=== PATIENT | male | born 1955 | race Caucasian/White ===

== ENCOUNTER → 2020-04-20 06:37 | Outpatient (CLI) | payer BC, MEDICARE, SELFPAY ==
--- NOTE | 2020-04-20 07:23 | DI.MRI.S_ITS ---
PROCEDURE: MR LUMBAR SPINE WO CON INDICATIONS: Bilateral sciatica, worsening sx, h/o multiple surgeries TECHNIQUE: Noncontrast sagittal T1 spin echo and T2 fast echo, sagittal STIR, axial T1 and T2 fast spin echo through the lumbar spine. In cases with scoliosis, additional coronal T2 fast spin echo may be performed. COMPARISON: [facility], MR, L-SPINE WITHOUT CONTRAST, 03/22/2010, 14:20. FINDINGS: Image quality: Excellent. Alignment and Curvature: Straightening of the normal lordotic curvature. Trace retrolisthesis of L3 on L4 and L5 on S1. Bone Marrow: No fracture. Scattered small Schmorl's nodes. Spinal Cord: Conus medullaris terminates at the L1 level. Visualized cord demonstrates normal signal and size. Paraspinous Soft Tissues: No paravertebral masses. Multilevel dorsal epidural lipomatosis. T12-L1: Normal appearance. L1-L2: No canal stenosis. Mild bilateral foraminal narrowing which is grossly unchanged. L2-L3: Posterior annular fissure and predominantly left paramedian disc protrusion. Moderate left-sided canal narrowing. Partial effacement of the left lateral recess. The right lateral recess appears grossly patent. Moderate right foraminal stenosis. Severe left foraminal stenosis with slight nerve root compression. L3-L4: Posterior annular fissure and broad-based posterior disc bulge. Dorsal epidural lipomatosis also noted. Associated severe canal narrowing. Effacement of both lateral recesses. Severe left foraminal stenosis with nerve root compression. Moderate right foraminal stenosis. L4-L5: Moderate canal narrowing. Effacement of both lateral recesses. Severe right foraminal stenosis with nerve root compression. Moderate to severe left foraminal stenosis with slight nerve root compression. L5-S1: Left paramedian disc protrusion and a mild left-sided canal narrowing. Partial effacement of the left lateral recess. The right lateral recess appears grossly patent. Moderate right foraminal stenosis. Mild left foraminal narrowing. IMPRESSION: Multilevel spondylosis and diffuse facet arthropathy with moderate canal narrowing at L4-L5, and L2-L3 and severe canal stenosis at L3-L4. Diffuse bilateral foraminal stenoses as detailed above by spinal level. Multilevel spondylolisthesis as above. Dictated by: Facundo Quiles M.D. on 04/20/2020 at 9:45 Approved by: Facundo Quiles M.D. on 04/20/2020 at 9:52
== END ==
PROVIDERS: PCP Student in an Organized Health Care Education/Training Program; Referring Provider Student in an Organized Health Care Education/Training Program; Visit Provider Student in an Organized Health Care Education/Training Program
DX: M54.41 Lumbago with sciatica, right side (principal); M54.40 Lumbago with sciatica, unspecified side; M47.816 Spondylosis without myelopathy or radiculopathy, lumbar region; M48.061 Spinal stenosis, lumbar region without neurogenic claudication; M48.07 Spinal stenosis, lumbosacral region; M43.16 Spondylolisthesis, lumbar region
CPT/HCPCS: 72148

== ENCOUNTER → 2020-06-27 09:56 | Outpatient (CLI) | payer BC, MEDICARE, SELFPAY ==
[2020-06-27 11:17] LABS: COVID19 -Nasal RAPID Negative (Negative)
== END ==
PROVIDERS: PCP Student in an Organized Health Care Education/Training Program; Visit Provider Student in an Organized Health Care Education/Training Program
DX: Z20.822 Contact with and (suspected) exposure to COVID-19 (principal)
CPT/HCPCS: 87635; C9803

== ENCOUNTER → 2020-06-28 07:38 | Outpatient (CLI) | payer BC, MEDICARE, SELFPAY ==
--- NOTE | 2020-06-28 11:55 | PM.TREADMILL ---
Cardiac Stress Test Report Referral & Results Date Patient Seen: 06/28/20 Time Patient Seen: 11:55 Requesting provider: Ritesh Alatorre Indication: angina pectoris Rest ECG: sinus rhythm with nonspecific ST changes Procedure Note: After Lexiscan injection had minimal dyspnea, no chest pain No significant ST changes after Lexiscan injection Rare PVCs Impression: Normal Lexiscan stress test Please note: Actual ECG tracings can be found in the PACS system.
--- NOTE | 2020-06-28 17:20 | DI.NM.S_ITS ---
DATE OF SERVICE: 06/28/2020 PROCEDURE PERFORMED: Pharmacologic vasodilator stress and rest myocardial perfusion imaging with gating to assess ejection fraction and regional wall motion. INDICATIONS: The patient is a 65-year-old male with history of myocardial infarction and percutaneous revascularization, who requires presurgical evaluation prior to back surgery. ORDERING PROVIDER: Dr. Ritesh Alatorre. PHARMACOLOGIC VASODILATOR STRESS: The patient was given 0.4 mg of regadenoson per protocol with a normal hemodynamic response without any chest discomfort. His resting ECG shows a nonspecific interventricular conduction delay with inferolateral ST-segment abnormalities and occasional PVCs. With stress, there were no significant ST-segment shifts. He had occasional ventricular bigeminy, but no concerning arrhythmias. Per protocol, he was injected with 26.5 millicuries of technetium-99m Myoview was imaged 20 minutes later using a gated SPECT acquisition protocol. Earlier in the day while at rest, he was injected with 12.7 millicuries of technetium- 99m Myoview was imaged 30 minutes later, again using a gated SPECT acquisition protocol. FINDINGS: 1. Raw data: There is fair myocardial tracer uptake with some slight motion noted. He was unable to lay prone due to physical limitations. His lung/heart ratio is elevated at 0.54, which can be a sign of pulmonary congestion, although is not visually obvious. His TID ratio was normal at 0.88. 2. Quantitated gated SPECT: Post-stress ejection fraction is calculated at 38 percent, although visually appears to be around 30 to 35 percent with global hypokinesis with akinesis of the inferior wall and proximal inferior septum. The resting ejection fraction is estimated at 30 percent, although visually appears quite similar to that of the post-stress images with a similar contraction pattern. 3. Myocardial perfusion imaging: Post-stress supine images shows absent perfusion throughout the proximal to mid inferior wall, extending into the proximal inferior septum with a mild defect in the distal inferior apex. There is no prone imaging available to assess for attenuation artifact. The resting images show an identical perfusion pattern without any areas of improvement. IMPRESSION: 1. Abnormal myocardial perfusion study. 2. Moderate-sized severe fixed perfusion defect in the inferior wall and inferior septum consistent with previous nontransmural inferior infarction, but there is no evidence for any significant myocardial ischemia. 3. Moderate-severely reduced left ventricular systolic function with moderate global hypokinesis and akinesis in the inferior wall, consistent with previous inferior infarction. Left ventricular volumes are increased with a resting end- diastolic volume of 227 mL. An increased lung/heart ratio of 0.54, would suggest the possibility of pulmonary congestion, but clinical correlation is recommended. 4. No angina or electrocardiographic evidence of ischemia with pharmacologic vasodilator stress. He had frequent PVCs, at times, in a bigeminal pattern. Remy Ras - CHANDNI/meli/nazario doc#: [id number]/job#: [id number] dd: 06/28/2020 13:19:00 dt: 06/28/2020 17:02:00 DICTATING MD/COPIES TO: John Ignacio MD; Ritesh Alatorre MD COPIES MNE: YULI;
== END ==
PROVIDERS: PCP Student in an Organized Health Care Education/Training Program; Referring Provider Student in an Organized Health Care Education/Training Program; Visit Provider Student in an Organized Health Care Education/Training Program
DX: I20.8 Other forms of angina pectoris (principal); R94.39 Abnormal result of other cardiovascular function study; I25.2 Old myocardial infarction
CPT/HCPCS: 78452; 93017; A9502; J2785

== ENCOUNTER → 2020-10-22 09:10 | Outpatient (CLI) | payer BC, MEDICARE, SELFPAY ==
[2020-10-22 11:08] LABS: COVID19 -Nasal RAPID Negative (Negative)
== END ==
PROVIDERS: PCP Student in an Organized Health Care Education/Training Program; Visit Provider Student in an Organized Health Care Education/Training Program
DX: Z01.812 Encounter for preprocedural laboratory examination (principal); Z20.822 Contact with and (suspected) exposure to COVID-19
CPT/HCPCS: 87635

== ENCOUNTER → 2021-09-26 11:42 | Outpatient (CLI) | payer BC, MEDICARE, SELFPAY ==
[2021-09-26 12:56] LABS: HEMOLYSIS < 15 (0-50)
[2021-09-26 13:03] LABS: Alanine Aminotransferase 40 IU/L (<50); Albumin 4.6 g/dL (3.5-5.0); Albumin Globulin Ratio 1.2 (1.0-2.8); Alkaline Phosphatase 53 U/L (38-126); Aspartate Aminotransferase 38 IU/L (17-59); BUN Creatinine Ratio 22.7 (6-22); Bilirubin Total 1.3 mg/dL (0.2-1.3); Blood Urea Nitrogen 15 mg/dL (9-20); Calcium 9.4 mg/dL (8.4-10.2); Carbon Dioxide 26 mmol/L (22-32); Chloride 103 mmol/L (98-107); Estimated Glomerular Filt Rate > 60 mL/min (>60); Glucose 232 mg/dL (80-110); Potassium 4.8 mmol/L (3.4-5.1); Sodium 137 mmol/L (137-145); Total Protein 8.6 g/dL (6.3-8.2)
[2021-09-26 13:10] LABS: Prealbumin 30.2 mg/dL (17.6-36.0)
[2021-09-27 05:17] LABS: Prostate Specific Antigen Scrn 0.563 ng/mL (0.1-4.0)
== END ==
PROVIDERS: PCP Student in an Organized Health Care Education/Training Program; Referring Provider Student in an Organized Health Care Education/Training Program; Visit Provider Student in an Organized Health Care Education/Training Program
DX: Z71.3 Dietary counseling and surveillance (principal); K08.109 Complete loss of teeth, unspecified cause, unspecified class; Z12.5 Encounter for screening for malignant neoplasm of prostate
CPT/HCPCS: 36415; 80053; 84134; G0103

== ENCOUNTER → 2021-11-08 09:16 | Outpatient (CLI) | payer BC, MEDICARE, SELFPAY ==
--- NOTE | 2021-11-08 09:20 | DI.US.S_ITS ---
PROCEDURE: US ABD AORTA ANEURYSM SCREEN INDICATIONS: AAA screen TECHNIQUE: Real time scanning was performed of the aorta and iliac arteries, with image documentation. COMPARISON: None. FINDINGS: Aorta: Proximal aorta measures 2.3 x 2.1 cm. Mid aorta measures 1.9 x 1.7 cm. Distal aorta measures 1.7 x 1.9 cm. Iliac arteries: Right common iliac artery measures 1.1 x 0.8 cm. Left common iliac artery measures 1.2 x 0.9 cm. IMPRESSION: No abdominal aortic aneurysm. Dictated by: Evan Meyers M.D. on 11/08/2021 at 10:03 Approved by: Evan Meyers M.D. on 11/08/2021 at 10:04
== END ==
PROVIDERS: PCP Student in an Organized Health Care Education/Training Program; Referring Provider Student in an Organized Health Care Education/Training Program; Visit Provider Student in an Organized Health Care Education/Training Program
DX: Z87.891 Personal history of nicotine dependence (principal); Z13.6 Encounter for screening for cardiovascular disorders
CPT/HCPCS: 76706

== ENCOUNTER → 2022-06-23 10:25 | Outpatient (CLI) | payer MEDICARE, SELFPAY ==
[2022-06-23 11:25] LABS: Hemoglobin A1C% w Est Avg Glu 8.5 % (4.0-6.0)
[2022-06-23 11:27] LABS: BUN Creatinine Ratio 25.4 (6-22); Blood Urea Nitrogen 18 mg/dL (9-20); Calcium 9.2 mg/dL (8.4-10.2); Carbon Dioxide 28 mmol/L (22-32); Chloride 103 mmol/L (98-107); Estimated Glomerular Filt Rate > 60 mL/min (>60); Glucose 269 mg/dL (80-110); HEMOLYSIS < 15 (0-50); Potassium 4.3 mmol/L (3.4-5.1); Sodium 137 mmol/L (137-145)
== END ==
PROVIDERS: PCP Student in an Organized Health Care Education/Training Program; Referring Provider Student in an Organized Health Care Education/Training Program; Visit Provider Student in an Organized Health Care Education/Training Program
DX: R73.9 Hyperglycemia, unspecified (principal); Z79.899 Other long term (current) drug therapy
CPT/HCPCS: 36415; 80048; 83036

== ENCOUNTER → 2022-10-06 09:12 | Outpatient (CLI) | payer MEDICARE, SELFPAY ==
[2022-10-06 10:19] LABS: Cholesterol 147 mg/dL (140-199); HDL Cholesterol 57 mg/dL (40-60); LDL Cholesterol Calculated 67 mg/dL (<100); Triglycerides 116 mg/dL (35-150)
[2022-10-06 19:28] LABS: Microalbumin Urine Random 1.3 mg/dL (0-1.6)
[2022-10-06 19:29] LABS: Creatinine Urine Random 125.7 mg/dL; Microalbumi Creatinin Ratio Ur 10.3 ug/mg CR (<30)
[2022-10-07 06:23] LABS: Labcorp Hemoglobin (Hb) A1c 7.5 % (4.8-5.6)
== END ==
PROVIDERS: PCP Student in an Organized Health Care Education/Training Program; Visit Provider Pediatrics
DX: E11.9 Type 2 diabetes mellitus without complications (principal); Z13.220 Encounter for screening for lipoid disorders
CPT/HCPCS: 80061; 82043; 82570; 83036

== ENCOUNTER → 2023-06-26 11:27 | Outpatient (CLI) | payer MEDICARE, SELFPAY ==
[2023-06-26 12:27] LABS: Hemoglobin A1C% w Est Avg Glu 7.5 % (4.0-6.0)
[2023-06-26 13:08] LABS: Alanine Aminotransferase 27 IU/L (<50); Albumin Globulin Ratio 1.2 (1.0-2.8); Alkaline Phosphatase 49 U/L (38-126); Aspartate Aminotransferase 28 IU/L (17-59); BUN Creatinine Ratio 40.3 (6-22); Bilirubin Total 1.3 mg/dL (0.2-1.3); Blood Urea Nitrogen 27 mg/dL (9-20); Calcium 9.6 mg/dL (8.4-10.2); Carbon Dioxide 26 mmol/L (22-32); Chloride 106 mmol/L (98-107); Cholesterol 141 mg/dL (140-199); Estimated Glomerular Filt Rate > 60 mL/min (>60); Globulin 3.3 g/dL (1.7-4.1); Glucose 212 mg/dL (80-110); HDL Cholesterol 45 mg/dL (40-60); HEMOLYSIS < 15 (0-50); LDL Cholesterol Calculated 73 mg/dL (<100); Potassium 4.7 mmol/L (3.4-5.1); Sodium 136 mmol/L (137-145); Total Protein 7.3 g/dL (6.3-8.2); Triglycerides 114 mg/dL (35-150)
== END ==
PROVIDERS: PCP Family Medicine; Referring Provider Family Medicine; Visit Provider Family Medicine
DX: E11.9 Type 2 diabetes mellitus without complications (principal); E78.5 Hyperlipidemia, unspecified
CPT/HCPCS: 36415; 80053; 80061; 83036

== ENCOUNTER 2024-04-26 18:24 | Emergency (ER) | payer MEDICARE, SELFPAY ==
[2024-04-26] VITALS (10 sets, daily range): BP systolic 93–124; BP diastolic 53–76; PULSE 56–71; RESP 13–25; TEMP 36.8; O2SAT 93–98; BMI 24.9
--- NOTE | 2024-04-26 18:38 | EKG_ITS ---
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
--- NOTE | 2024-04-26 18:39 | ED_ITS ---
HPI - Arrhythmia/Palpitations General Chief Complaint: Arrhythmia/Palpitations Stated Complaint: defibrillator kept going off Time Seen by Provider: 04/26/24 18:37 Source: patient Mode of arrival: Ambulatory History of Present Illness HPI narrative: 69-year-old male with history of type 2 diabetes, coronary disease, congestive heart failure, cardiomyopathy with AICD in place presents by private vehicle from home for defibrillator abnormality. Followed by [facility] cardiolgo in [place]. Patient states that yesterday he felt nauseous and unwell. 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 He states that today he feels completely normal and has no complaints. He is currently waiting for an appointment with [facility] Dr. Lopes electrophysiology for VT ablation. He has been on mexiletine for the last 2 weeks. Denies any other medication changes. Related Data Home Medications Medication Instructions Recorded Confirmed aspirin 81 mg tablet,delayed 81 mg PO DAILY 09/26/21 04/20/24 release metoprolol succinate 50 mg 50 mg PO DAILY 04/28/22 04/20/24 tablet,extended release 24 hr multivitamin 1 tab PO DAILY 09/03/22 04/20/24 amiodarone 200 mg tablet 200 mg PO BID 04/20/24 04/20/24 chlorhexidine gluconate 0.12 % PO BID 04/20/24 04/20/24 mouthwash mexiletine 150 mg capsule 150 mg PO 3XD 04/20/24 04/20/24 sacubitril 97 mg-valsartan 103 mg 1 tab PO BID 04/20/24 04/20/24 tablet (Entresto) Previous Rx's Medication Instructions Recorded eplerenone 25 mg tablet 25 mg PO DAILY #90 tabs 10/13/22 atorvastatin 40 mg tablet 40 mg PO DAILY #90 tabs 08/10/23 gabapentin 600 mg tablet 600 mg PO ONCE PM #90 tabs 09/08/23 methocarbamol 500 mg tablet 500 mg PO BID PRN muscle spasm 02/09/24 #180 tabs metformin 500 mg tablet,extended 1,000 mg (2 x 500 mg) PO BID #360 03/10/24 release 24 hr tabs hydrocodone 7.5 mg-acetaminophen 1 tab PO Q8H PRN severe pain #90 04/12/24 325 mg tablet tabs Allergies Allergy/AdvReac Type Severity Reaction Status Date / Time No Known Drug Allergies Allergy Verified 04/20/24 09:02 Patient History Medical History Cardiac defibrillator in place Squamous cell carcinoma of mouth History of tobacco use Surgical History History of lumbar laminectomy Social History Smoking Status: Former smoker Smoking Status: Former smoker Exam Initial Vital Signs Initial Vital Signs: Vital Signs Temperature 98.3 F 04/26/24 18:27 Pulse Rate 71 04/26/24 18:27 Respiratory Rate 20 04/26/24 18:27 Blood Pressure 104/56 L 04/26/24 18:27 Pulse Oximetry 97 04/26/24 18:27 Oxygen Delivery Method Room Air 04/26/24 18:27 Const: Awake, alert, no acute distress, nontoxic appearing Cardiac: regular rate, regular rhythm RESP: unlabored, clear bilaterally, no wheezing Skin: Warm, Dry, intact, no rashes Neuro: AO x3, CN II-XII grossly intact, moves all extremities Course Orders Ordered: ED Orders 04/26/24 18:38 Chest [XR chest 2V] Stat EKG-12 Lead Stat 04/26/24 19:09 BNP [NT-proBNP (BNP-Adult 18+)] Stat CBC Auto Diff [Complete Blood Count AUTO DIFF] Stat CMP [Comprehensive Metabolic Panel] Stat MAG [Magnesium] Stat PT [Prothrombin Time INR] Stat TSH [Thyroid Stimulating Hormone] Stat Discontinued Medications Amiodarone HCl/Dextrose (Nexterone) 150 mg in 100 mls @ 600 mls/hr IV NOW ONE; Protocol Stop: 04/26/24 21:27 Last Admin: 04/26/24 21:43 Dose: 600 mls/hr Documented By: MATEO Amiodarone HCl/Dextrose (Nexterone) 360 mg in 200 mls @ 33.333 mls/hr IV NOW ONE; Protocol Stop: 04/27/24 03:17 Vital Signs Vital signs: Vital Signs - 8 hr 04/26/24 18:27 04/26/24 18:37 04/26/24 18:39 Temperature 98.3 F Pulse Rate 71 65 Respiratory Rate 20 Blood Pressure 104/56 L 119/76 Pulse Oximetry 97 96 Oxygen Delivery Method Room Air 04/26/24 18:39 04/26/24 19:00 04/26/24 20:03 Temperature Pulse Rate 66 61 60 Respiratory Rate 18 25 H Blood Pressure Pulse Oximetry 98 94 95 Oxygen Delivery Method Room Air 04/26/24 20:04 04/26/24 20:04 04/26/24 20:30 Temperature Pulse Rate 59 L 57 L Respiratory Rate 23 18 Blood Pressure 124/63 Pulse Oximetry 94 93 Oxygen Delivery Method 04/26/24 20:31 04/26/24 20:31 04/26/24 21:00 Temperature Pulse Rate 58 L 56 L Respiratory Rate 17 13 Blood Pressure 94/54 L Pulse Oximetry 93 95 Oxygen Delivery Method 04/26/24 21:00 04/26/24 21:30 04/26/24 21:30 Temperature Pulse Rate 56 L Respiratory Rate 21 Blood Pressure 93/53 L 101/63 Pulse Oximetry 96 Oxygen Delivery Method MDM - Arrhythmia/Palpitations Differential Diagnosis Differential diagnosis: Likely ventricular premature beats, supraventricular tachycardia and ventricular tachycardia Lab Data 04/26/24 19:09 04/26/24 19:09 Labs: Lab Results 04/26/24 Range/Units 19:09 WBC 10.6 (4.5-11.0) X10^3/uL RBC 4.42 L (4.5-5.9) X10^6/uL Hgb 14.6 (13.5-17.5) g/dL Hct 43.2 (41-53) % MCV 97.9 (80-100) fL MCH 33.2 (26-34) PG MCHC 33.9 (30-36) % RDW 14.6 (11.6-14.8) % Plt Count 183 (150-400) X10^3/uL Neut % (Auto) 67.8 (50-75) % Lymph % (Auto) 18.4 L (25-40) % [place] % (Auto) 10.9 (3-14) % Eos % (Auto) 2.3 (2-4) % Baso % (Auto) 0.6 (0-2) % Neut # (Auto) 7200 H (8995-4877) /uL Lymph # (Auto) 2000 (8364-2391) /uL [place] # (Auto) 1200 H (0-900) /uL Eos # (Auto) 200 (0-450) /uL Baso # (Auto) 100 (0-100) /uL PT 10.5 (9.4-12.5) SECONDS INR 0.9 (0.9-1.3) Sodium 135 L (137-145) mmol/L Potassium 4.7 (3.4-5.1) mmol/L Chloride 103 (98-107) mmol/L Carbon Dioxide 20 L (22-32) mmol/L BUN 41 H (9-20) mg/dL Creatinine 1.09 (0.66-1.25) mg/dL Estimated GFR > 60 (>60) mL/min BUN/Creatinine Ratio 37.6 H (6-22) Glucose 194 H (80-110) mg/dL Calcium 9.9 (8.4-10.2) mg/dL Magnesium 1.8 (1.6-2.3) mg/dL Total Bilirubin 0.9 (0.2-1.3) mg/dL AST 43 (17-59) IU/L ALT 40 (<50) IU/L Alkaline Phosphatase 46 (38-126) U/L NT-Pro-B Natriuret Pep 1430 H (<125) pg/mL Total Protein 7.7 (6.3-8.2) g/dL Albumin 4.6 (3.5-5.0) g/dL Globulin 3.1 (1.7-4.1) g/dL Albumin/Globulin Ratio 1.5 (1.0-2.8) TSH 76.4 H (0.47-4.68) uIU/mL Imaging Data Chest x-ray: Radiologist's Impresson: PROCEDURE: XR CHEST 2V INDICATIONS: DEFIBRILLATOR MISFIRE, LEAD CHECK TECHNIQUE: 2 views of the chest were acquired. COMPARISON: None. FINDINGS: Surgical changes and devices: Right chest wall diffuse via later leads are in the region of right atrium and right ventricle. Lungs and pleura: There is mild pulmonary vascular congestion. No focal infiltrate. No pleural effusions or pneumothorax. Mediastinum: Mediastinal contours are normal. Heart size is normal. Bones and chest wall: No suspicious bony abnormalities. Soft tissues appear unremarkable. IMPRESSION: Right chest wall defibrillator leads are seen in right atrium and right ventricle. No focal infiltrate, pleural effusion or pneumothorax. Mild congestion. Dictated by: Cristobal Steiner M.D. on 04/26/2024 at 19:42 Approved by: Cristobal Steiner M.D. on 04/26/2024 at 19:43 ECG Data Interpretation: Normal sinus rhythm at 65 beats per minute. Normal OK. Generalized T-wave inversions MDM Narrative Medical decision making narrative: Nontoxic patient with abnormal AICD readings. He says that today he is completely asymptomatic and if he had not been notified by the cardiology office he would not feel the need to come to the ER. Laboratory work ordered for assessment, AICD interrogation ordered. PROSimity report shows numerous nonsustained episodes of V-tach, no shocks advised. Electrolytes within normal limits. Case discussed with on-call Cardiology at [facility] Dr. Kwan, who stated that the patient's operations planner recommended loading dose of amiodarone and overnight infusion of amiodarone. Plan to call back in morning after discussing with EP about if patient should be transferred to [facility] or . Patient was informed of cardiology recommendations and is adamantly against spending the night in the hospital. He states that the only reason that he came to begin with is because he was told by the nurse line that he may get to go home tonight. He did agree to the initial bolus of amiodarone. I discussed cardiology recommendations with him and his extensively including risks of leaving prior to completion of treatment including persistent V-tach and up to . Patient states that he lives nearby and his can drive him if he has any further problems. Discharge Plan Departure Patient Disposition: Left Against Medical Advice Clinical Impression: Ventricular tachycardia, Left against medical advice Instructions: DI for Arrhythmias Activity Restrictions/Additional Instructions: Your defibrillator interrogation shows that you were going into multiple episodes of ventricular tachycardia. Your cardiology team recommends that you stay overnight for amiodarone infusion, however you have elected to leave to go home. If you notice any change in your symptoms please return immediately to the closest ER for evaluation. Continue to take all of your other medications as prescribed. You were given a single IV bolus of amiodarone here in the emergency department, which should hopefully help to decrease your ventricular tachycardia recurrence rate. Prescriptions: No Action amiodarone 200 mg tablet 200 mg PO BID mexiletine 150 mg capsule 150 mg PO 3XD sacubitril-valsartan [Entresto] 97-103 mg tablet 1 tab PO BID chlorhexidine gluconate 0.12 % mouthwash PO BID eplerenone 25 mg tablet 25 mg PO DAILY Qty: 90 1RF atorvastatin 40 mg tablet 40 mg PO DAILY Qty: 90 3RF gabapentin 600 mg tablet 600 mg PO ONCE PM Qty: 90 1RF methocarbamol 500 mg tablet 500 mg PO BID PRN (Reason: muscle spasm) Qty: 180 1RF metformin 500 mg tablet extended release 24 hr 1,000 mg PO BID Qty: 360 0RF hydrocodone-acetaminophen 7.5-325 mg tablet 1 tab PO Q8H PRN (Reason: severe pain) Qty: 90 0RF aspirin 81 mg tablet,delayed release (DR/EC) 81 mg PO DAILY metoprolol succinate 50 mg tablet extended release 24 hr 50 mg PO DAILY multivitamin Tablet 1 tab PO DAILY Referrals: Tim Lombardo MD [Primary Care Provider] - Stand Alone Forms: Patient Portal/API, Against Medical Advice, Patient Portal/API/Survey
[2024-04-26 19:16] LABS: Add Manual Diff / Slide Review NO; Basophils Absolute Auto 100 /uL (0-100); Basophils Percent Auto 0.6 % (0-2); Eosinophils Absolute Auto 200 /uL (0-450); Eosinophils Percent Auto 2.3 % (2-4); Hematocrit 43.2 % (41-53); Hemoglobin 14.6 g/dL (13.5-17.5); Lymphocytes Absolute Auto 2000 /uL (1100-4500); Lymphocytes Percent Auto 18.4 % (25-40); Mean Corpuscular HGB Conc 33.9 % (30-36); Mean Corpuscular Hemoglobin 33.2 PG (26-34); Mean Corpuscular Volume 97.9 fL (80-100); Monocytes Absolute Auto 1200 /uL (0-900); Monocytes Percent Auto 10.9 % (3-14); Neutrophils Absolute Auto 7200 /uL (1500-7000); Neutrophils Percent Auto 67.8 % (50-75); Platelet Count 183 X10^3/uL (150-400); Red Blood Cell Count 4.42 X10^6/uL (4.5-5.9); Red Cell Distribution Width 14.6 % (11.6-14.8); White Blood Cell Count 10.6 X10^3/uL (4.5-11.0)
[2024-04-26 19:26] LABS: INR 0.9 (0.9-1.3); Prothrombin Time 10.5 SECONDS (9.4-12.5)
[2024-04-26 19:35] LABS: Alanine Aminotransferase 40 IU/L (<50); Albumin 4.6 g/dL (3.5-5.0); Albumin Globulin Ratio 1.5 (1.0-2.8); Alkaline Phosphatase 46 U/L (38-126); Aspartate Aminotransferase 43 IU/L (17-59); BUN Creatinine Ratio 37.6 (6-22); Bilirubin Total 0.9 mg/dL (0.2-1.3); Blood Urea Nitrogen 41 mg/dL (9-20); Calcium 9.9 mg/dL (8.4-10.2); Carbon Dioxide 20 mmol/L (22-32); Chloride 103 mmol/L (98-107); Estimated Glomerular Filt Rate > 60 mL/min (>60); Globulin 3.1 g/dL (1.7-4.1); Glucose 194 mg/dL (80-110); HEMOLYSIS < 15 (0-50); Magnesium 1.8 mg/dL (1.6-2.3); Potassium 4.7 mmol/L (3.4-5.1); Sodium 135 mmol/L (137-145); Total Protein 7.7 g/dL (6.3-8.2)
[2024-04-26 19:45] LABS: NT-proBNP (BNP-Adult 18+) 1430 pg/mL (<125)
[2024-04-26 20:07] LABS: Thyroid Stimulating Hormone 76.4 uIU/mL (0.47-4.68)
[2024-04-26] MEDS: AMIODARONE 150 MG/100 ML PIGGYBACK 600 MG IV (21:43)
== END 2024-04-26 22:00 | disposition left against medical advice (07) ==
PROVIDERS: Emergency Provider Emergency Medicine; PCP Family Medicine; Referring Provider Family Medicine
DX: I47.20 Ventricular tachycardia, unspecified (principal)
CPT/HCPCS: 36415; 71046; 80053; 83735; 83880; 84443; 85025; 85610; 93005; 96374; 99284; J0282

== ENCOUNTER → 2025-01-23 10:46 | Outpatient (CLI) | payer MEDICARE, SELFPAY ==
[2025-01-23 11:54] LABS: Hematocrit 44.3 % (41-53); Hemoglobin 14.9 g/dL (13.5-17.5); Mean Corpuscular HGB Conc 33.6 % (30-36); Mean Corpuscular Hemoglobin 31.2 PG (26-34); Mean Corpuscular Volume 92.7 fL (80-100); Platelet Count 252 X10^3/uL (150-400)
[2025-01-23 12:03] LABS: Hemoglobin A1C% w Est Avg Glu 6.8 % (4.0-6.0)
[2025-01-23 12:16] LABS: Alanine Aminotransferase 49 IU/L (<50); Albumin 4.4 g/dL (3.5-5.0); Albumin Globulin Ratio 1.5 (1.0-2.8); Alkaline Phosphatase 57 U/L (38-126); Blood Urea Nitrogen 14 mg/dL (9-20); Calcium 10.0 mg/dL (8.4-10.2); Carbon Dioxide 23 mmol/L (22-32); Chloride 102 mmol/L (98-107); Cholesterol 163 mg/dL (140-199); Estimated Glomerular Filt Rate > 60 mL/min (>60); Globulin 3.0 g/dL (1.7-4.1); Glucose 122 mg/dL (70-99); HDL Cholesterol 83 mg/dL (40-60); HEMOLYSIS < 15 (0-50); Potassium 4.6 mmol/L (3.4-5.1); Sodium 136 mmol/L (137-145); Total Protein 7.4 g/dL (6.3-8.2); Triglycerides 97 mg/dL (35-150)
[2025-01-23 12:32] LABS: Free T3, Triiodothyronine Free 2.46 pg/mL (2.77-5.27); Free T4, Direct Thyroxine 1.47 ng/dL (0.78-2.19)
[2025-01-23 12:45] LABS: Thyroid Stimulating Hormone 4.13 uIU/mL (0.47-4.68)
[2025-01-23 14:14] LABS: Microalbumi Creatinin Ratio Ur 20.0 ug/mg CR (<30)
[2025-01-24 14:12] LABS: Anti Thyroglobulin Antibody <1.0 IU/mL (0.0-0.9)
[2025-01-24 15:53] LABS: Hep C Virus Ab w/Reflex Quant NEGATIVE s/c (NEGATIVE)
== END ==
PROVIDERS: PCP Family Medicine; Referring Provider Family Medicine; Visit Provider Family Medicine
DX: E11.9 Type 2 diabetes mellitus without complications (principal); Z12.5 Encounter for screening for malignant neoplasm of prostate; E78.5 Hyperlipidemia, unspecified; E03.9 Hypothyroidism, unspecified; Z11.59 Encounter for screening for other viral diseases
CPT/HCPCS: 36415; 80053; 80061; 82043; 82570; 83036; 84439; 84443; 84481; 85027; 86376; 86800; 86803; G0103